=== PATIENT | female | born 1990 | race American Indian/Alaskan Native ===

== ENCOUNTER 2020-02-09 13:41 | Emergency (ER) | payer OTHER ==
[2020-02-09] MEDS ORDERED: MORPHINE 2 MG/1 ML INJ IM ONE (14:22)
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
[2020-02-09 15:28] VITALS: BP 110/67
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
[2020-02-09] MEDS ORDERED: ONDANSETRON 4 MG ODT TAB PO ONE (16:37)
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
[2020-02-09] MEDS ORDERED: ONDANSETRON 4 MG ODT TAB ONE (16:41)
[2020-02-09 17:44] LABS: Bilirubin,Urine NEG (Negative); Blood,Urine NEG (Negative); Color,Urine Yellow (Yellow); Mucus,Urine FEW /HPF; Protein,Urine <15 mg/dL mg/dL (Negative); Urobilinogen,Urine < 2.0 mg/dL (<2.0)
[2020-02-09] MEDS ORDERED: IBUPROFEN 600 MG TAB PO ONE (18:14)
[2020-02-09] MEDS ORDERED: ACETAMINOPHEN 325 MG TAB PO ONE (18:14)
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
== END 2020-02-09 18:55 | disposition home or self-care (01) ==
LOC: ED 13:41
DX: S09.90XA Unspecified injury of head, initial encounter (principal); S13.4XXA Sprain of ligaments of cervical spine, initial encounter; M79.602 Pain in left arm; M54.5 Low back pain; M25.562 Pain in left knee; V89.2XXA Person injured in unspecified motor-vehicle accident, traffic, initial encounter; Y93.89 Activity, other specified; Y92.410 Unspecified street and highway as the place of occurrence of the external cause; Y99.8 Other external cause status
CPT/HCPCS: 70450; 71045; 72100; 72125; 72170; 73030; 73060; 73560; 81001; 96372; 99285; J2270; Q0162